=== PATIENT | female | born 1975 | race Caucasian/White ===

== ENCOUNTER 2017-10-10 14:29 | Emergency (ER) | payer MEDICAID ==
[~2017-10-10] VITALS: Ht 160 cm; Wt 82.0 kg
[2017-10-10] MEDS ORDERED: LIDOCAINE HCL 1%/EPI 1:200,000 30 ML VIAL MC ONE (17:15)
[2017-10-10] MEDS ORDERED: LIDOCAINE HCL/EPINEPHRINE 1%-EPI 1:100,000 50 ML VIAL INFIL NR (17:53)
[2017-10-10 20:45] VITALS: BP 125/89
== END 2017-10-10 20:52 | disposition home or self-care (01) ==
LOC: ER 14:39
DX: N75.0 Cyst of Bartholin's gland (principal); Z87.891 Personal history of nicotine dependence
CPT/HCPCS: 56420; 99283

== ENCOUNTER 2018-07-17 14:53 | Emergency (ER) | payer MEDICAID ==
[~2018-07-17] VITALS: Ht 160 cm; Wt 90.0 kg
[2018-07-17 20:00] VITALS: BP 128/76
[2018-07-17] MEDS ORDERED: LIDOCAINE HCL/PF 1% 10 MG/ML 5ML VIAL IJ ONE (20:45)
[2018-07-17] MEDS ORDERED: BACITRACIN ZINC OINT UDPKT TOP ONE (20:45)
== END 2018-07-17 22:28 | disposition home or self-care (01) ==
LOC: ER 14:53
DX: N75.1 Abscess of Bartholin's gland (principal)
CPT/HCPCS: 99283; J3490

== ENCOUNTER 2018-10-06 15:37 | Emergency (ER) | payer MEDICAID ==
[~2018-10-06] VITALS: Ht 160 cm; Wt 86.0 kg
[2018-10-06] MEDS ORDERED: LIDOCAINE HCL/PF 1% 10 MG/ML 5ML VIAL IJ ONE (17:45)
[2018-10-06 18:10] VITALS: BP 123/77
== END 2018-10-06 18:18 | disposition home or self-care (01) ==
LOC: ER 15:37
DX: N75.0 Cyst of Bartholin's gland (principal)
CPT/HCPCS: 10060; 99283; J3490; Z7610